=== PATIENT | female | born 1990 | race Caucasian/White ===

== ENCOUNTER 2020-06-30 09:00 | Observation (INO) | payer OTHER ==
[~2020-06-30] VITALS: Ht 157.5 cm; Wt 83.9 kg
[2020-06-30 09:45] VITALS: BP 117/69
[2020-06-30] MEDS ORDERED: PREN-217 PO (10:17)
== END 2020-06-30 10:15 | disposition home or self-care (01) ==
LOC: 4S 09:00
PROVIDERS: ADMIT Obstetrics & Gynecology; ATTEND Obstetrics & Gynecology
DX: O60.03 Preterm labor without delivery, third trimester (principal); O42.913 Preterm premature rupture of membranes, unspecified as to length of time between rupture and onset of labor, third trimester; Z3A.35 35 weeks gestation of pregnancy
CPT/HCPCS: 59025; 99219

== ENCOUNTER 2020-07-03 13:15 | Observation (INO) | payer OTHER ==
[~2020-07-03] VITALS: Ht 160 cm; Wt 83.9 kg
[~2020-07-03 13:15] MED LIST: PREN-217 PO
[2020-07-05] MEDS ORDERED: FERR-89 PO (09:36)
[2020-07-05 09:37] VITALS: BP 113/62
== END 2020-07-05 10:50 | disposition home or self-care (01) ==
LOC: 4S 07-05 09:05
PROVIDERS: ADMIT Obstetrics & Gynecology; ATTEND Obstetrics & Gynecology
DX: O99.89 Other specified diseases and conditions complicating pregnancy, childbirth and the puerperium (principal); N13.30 Unspecified hydronephrosis; Z3A.37 37 weeks gestation of pregnancy
CPT/HCPCS: 59025; 76805; 99219

== ENCOUNTER 2020-07-12 09:15 | Observation (INO) | payer OTHER ==
[~2020-07-12] VITALS: Ht 160 cm; Wt 84.8 kg
[~2020-07-12 09:15] MED LIST changes: +FERR-89 PO
[2020-07-12 09:32] VITALS: BP 109/64
== END 2020-07-12 11:35 | disposition home or self-care (01) ==
LOC: 4S 09:15
PROVIDERS: ADMIT Obstetrics & Gynecology; ATTEND Obstetrics & Gynecology
DX: O42.92 Full-term premature rupture of membranes, unspecified as to length of time between rupture and onset of labor (principal); Z3A.37 37 weeks gestation of pregnancy
CPT/HCPCS: 59025; 76816; 99219

== ENCOUNTER 2020-07-12 12:53 | Observation (INO) | payer OTHER ==
[2020-07-19 09:28] VITALS: BP 129/72
== END 2020-07-19 12:25 | disposition home or self-care (01) ==
LOC: 4S 07-19 09:05
PROVIDERS: ADMIT Obstetrics & Gynecology; ATTEND Obstetrics & Gynecology
DX: O42.92 Full-term premature rupture of membranes, unspecified as to length of time between rupture and onset of labor (principal); Z20.828 Contact with and (suspected) exposure to other viral communicable diseases; Z3A.38 38 weeks gestation of pregnancy
CPT/HCPCS: 59025; 76815; 99219

== ENCOUNTER 2020-07-20 13:25 | Observation (INO) | payer OTHER ==
[~2020-07-20] VITALS: Ht 160 cm; Wt 76.2 kg
[2020-07-20 13:55] VITALS: BP 128/68
== END 2020-07-20 14:25 | disposition home or self-care (01) ==
LOC: 4S 13:25
PROVIDERS: ADMIT Obstetrics & Gynecology; ATTEND Obstetrics & Gynecology
DX: O42.92 Full-term premature rupture of membranes, unspecified as to length of time between rupture and onset of labor (principal); O62.9 Abnormality of forces of labor, unspecified; O36.8130 Decreased fetal movements, third trimester, not applicable or unspecified; Z3A.38 38 weeks gestation of pregnancy
CPT/HCPCS: 59025; 99219

== ENCOUNTER 2020-07-22 10:14 | Inpatient (IN) | payer OTHER ==
[~2020-07-22] VITALS: Ht 157.5 cm; Wt 85.3 kg
[2020-07-22 10:36] VITALS: BP 117/76
[2020-07-22 11:01] LABS: COVID AG,FIA SOURCE NASOPHARYNGEAL
[2020-07-22] MEDS ORDERED: RINGERS SOLUTION,LACTATED 1,000 ML IV PRN (12:30)
[2020-07-22] MEDS ORDERED: METOCLOPRAMIDE HCL 5 MG/ML 2 ML VIAL IVP PRN (12:30)
[2020-07-22] MEDS ORDERED: CITRIC ACID/SODIUM CITRATE 30 ML SOLUTION UDCUP PO PRN (12:30)
[2020-07-22] MEDS ORDERED: OXYTOCIN 30 UNITS/LACT RINGERS 500 ML IV ONE (12:30)
[2020-07-22] MEDS ORDERED: FentaNYL CITRATE-PF 100 MCG/2 ML VIAL IVP PRN (12:30)
[2020-07-22] MEDS ORDERED: MINERAL OIL 30 ML UDCUP VG ONE (13:00)
[2020-07-22] MEDS: RINGERS SOLUTION,LACTATED 1,000 ML IV SCH ×4 (13:51→23:37)
[2020-07-22 13:56] LABS: BASOPHILS % (AUTO) 0.1 % (0.0-2.0); EOSINOPHILS % (AUTO) 0.8 % (1.0-6.0); HEMATOCRIT 36.8 % (36-46); HEMOGLOBIN 12.5 g/dL (12.0-16.0); LYMPHOCYTES # (AUTO) 1.6 K/uL (1.0-4.8); LYMPHOCYTES % (AUTO) 15.3 % (22.0-44.0); MEAN CORPUSCULAR HEMOGLOBIN 28.6 pg (26.0-34.0); MEAN CORPUSCULAR HGB CONC 33.9 G/dL (31.0-37.0); MEAN CORPUSCULAR VOLUME 84 fL (80-100); MONOCYTES # (AUTO) 0.6 K/uL (0.1-1.0); MONOCYTES % (AUTO) 5.7 % (2.0-9.0); NEUTROPHILS # (AUTO) 8.1 K/uL (1.8-7.7); NEUTROPHILS % (AUTO) 78.1 % (40.0-70.0); PLATELET COUNT (AUTO)-OB 358 K/uL (150-450); RED BLOOD CELL COUNT(AUTO) 4.36 MIL/uL (4.00-5.20); RED CELL DISTRIBUTION WIDTH 14.7 % (11.5-14.5)
[2020-07-22] MEDS ORDERED: OXYTOCIN 30 UNITS/LACT RINGERS 500 ML IV PRN ×2 (14:37→17:12)
[2020-07-22] MEDS ORDERED: ROPIVACAINE HCL/PF 0.2% 100 ML ED PRN (16:43)
[2020-07-22] MEDS ORDERED: ONDANSETRON HCL 4 MG/2 ML VIAL IVP PRN (16:45)
[2020-07-22] MEDS ORDERED: DiphenhydrAMINE HCL 50 MG/ML VIAL IVP PRN (16:45)
[2020-07-22] MEDS ORDERED: NALBUPHINE HCL 10 MG/ML VIAL IVP PRN (16:45)
[2020-07-22] MEDS ORDERED: BUPIVACAINE HCL/PF 0.25% 10 ML VIAL ONE (18:25)
[2020-07-22] MEDS ORDERED: ROPIVACAINE HCL/PF 0.2% 100 ML ED ONE (18:25)
[2020-07-22] MEDS ORDERED: OXYGEN THERAPY IH SCH (20:00)
[2020-07-22] MEDS ORDERED: LIDOCAINE 2%/EPI 1:200,000/PF 20 ML VIAL ONE (21:09)
[2020-07-23] MEDS ORDERED: OXYTOCIN 30 UNITS/LACT RINGERS 500 ML IV ONE (00:43)
[2020-07-23] MEDS ORDERED: GLYCERIN/WITCH HAZEL LEAF 40 PADS JAR TP PRN (00:45)
[2020-07-23] MEDS ORDERED: OxyCODONE HCL/ACETAMINOPHEN 5-325 MG TABLET PO PRN (00:45)
[2020-07-23] MEDS ORDERED: LANOLIN 7 GM OINTMENT TP PRN (00:45)
[2020-07-23] MEDS ORDERED: LIDOCAINE/PF 1% 30 ML VIAL INJ PRN (00:45)
[2020-07-23] MEDS ORDERED: BENZOCAINE 20%/MENTHOL 56 GM SPRAY CANISTER TP PRN (00:45)
[2020-07-23] MEDS: IBUPROFEN 800 MG TABLET PO PRN ×2 (02:11→12:53)
[2020-07-23] MEDS ORDERED: ampicillin PO (03:03)
[2020-07-23 03:27] VITALS: BP 109/55
[2020-07-23] MEDS: MAGNESIUM HYDROXIDE SUSPENSION 30 ML UDCUP PO PRN ×2 (08:36→21:04)
[2020-07-23] MEDS: OxyCODONE HCL/ACETAMINOPHEN 5-325 MG TABLET PO PRN (12:53)
[2020-07-24] MEDS: IBUPROFEN 800 MG TABLET PO PRN ×2 (01:18→09:10)
[2020-07-24] MEDS: OxyCODONE HCL/ACETAMINOPHEN 5-325 MG TABLET PO PRN (01:18)
[2020-07-24 06:35] LABS: BASOPHILS % (AUTO) 0.2 % (0.0-2.0); EOSINOPHILS % (AUTO) 1.4 % (1.0-6.0); HEMATOCRIT 33.3 % (36-46); HEMOGLOBIN 11.3 g/dL (12.0-16.0); LYMPHOCYTES # (AUTO) 2.6 K/uL (1.0-4.8); LYMPHOCYTES % (AUTO) 20.5 % (22.0-44.0); MEAN CORPUSCULAR VOLUME 85 fL (80-100); NEUTROPHILS # (AUTO) 8.9 K/uL (1.8-7.7); NEUTROPHILS % (AUTO) 69.9 % (40.0-70.0); PLATELET COUNT (AUTO)-OB 333 K/uL (150-450); RED BLOOD CELL COUNT(AUTO) 3.91 MIL/uL (4.00-5.20); RED CELL DISTRIBUTION WIDTH 15.2 % (11.5-14.5)
[2020-07-24] MEDS: MAGNESIUM HYDROXIDE SUSPENSION 30 ML UDCUP PO PRN (09:10)
[2020-07-24] MEDS ORDERED: IBUP-2071 PO (10:07)
[2020-07-24] MEDS ORDERED: DOCU-275 PO (10:13)
[2020-07-24] MEDS ORDERED: FERR-89 PO (10:14)
== END 2020-07-24 12:20 | disposition home or self-care (01) | DRG 560 ==
LOC: 4S 10:14 → OBSVTOIN 10:14
PROVIDERS: ADMIT Obstetrics & Gynecology; ATTEND Obstetrics & Gynecology
PROC: 10907ZC Drainage of Amniotic Fluid, Therapeutic from Products of Conception, Via Natural or Artificial Opening (ICD-10-PCS; principal; 2020-07-23)
PROC: 10E0XZZ Delivery of Products of Conception, External Approach (ICD-10-PCS; 2020-07-23)
PROC: 0HQ9XZZ Repair Perineum Skin, External Approach (ICD-10-PCS; 2020-07-23)
PROC: 3E0R3BZ Introduction of Anesthetic Agent into Spinal Canal, Percutaneous Approach (ICD-10-PCS; 2020-07-23)
PROC: 00HU33Z Insertion of Infusion Device into Spinal Canal, Percutaneous Approach (ICD-10-PCS; 2020-07-23)
DX: O41.03X0 Oligohydramnios, third trimester, not applicable or unspecified (principal); O70.0 First degree perineal laceration during delivery; Z3A.38 38 weeks gestation of pregnancy; Z37.0 Single live birth; Z03.818 Encounter for observation for suspected exposure to other biological agents ruled out
CPT/HCPCS: 86850; 86900; 86901; 87426; J2590; J2795; J3490; J7120